=== PATIENT | male | born 1960 | race African-American/Black ===

== ENCOUNTER → 2017-04-16 | Outpatient (CLI) | payer OTHER | END | disposition home or self-care (01) | LOC: HKI 14:31 | DX: M17.12 Unilateral primary osteoarthritis, left knee (principal); B19.10 Unspecified viral hepatitis B without hepatic coma; Z72.0 Tobacco use; Z96.652 Presence of left artificial knee joint | CPT/HCPCS: 73564; 73564-LT ==

== ENCOUNTER → 2017-04-27 | Outpatient (CLI) | payer OTHER | END | disposition home or self-care (01) | LOC: HKI 09:07 | DX: M17.12 Unilateral primary osteoarthritis, left knee (principal) | CPT/HCPCS: 20610 ==